=== PATIENT | male | born 1980 | race Caucasian/White ===

== ENCOUNTER 2019-11-03 09:43 | Emergency (ER) | payer OTHER, SELFPAY ==
--- NOTE | ~2019-11-03 | XR_ITS ---
EXAMINATION: XR chest 2V DATE: 11/03/2019 10:16 INDICATION: Midline chest pain TECHNIQUE: PA and lateral views of the chest were obtained. COMPARISON: Chest radiograph dated 04/14/2019 FINDINGS: The lungs remain clear with no focal airspace opacities, pulmonary edema, pleural effusion or pneumot horax. The cardiomediastinal silhouette is normal. Coronary artery stenting. Visualized bones and sof t tissues are unremarkable. IMPRESSION: 1. No acute cardiopulmonary disease. Reviewed, dictated and finalized at location A.
[2019-11-03 09:35] VITALS: BP 135/84; PULSE 71; RESP 13; TEMP 36.5; O2SAT 99
[2019-11-03 09:45] VITALS: PULSE 76
--- NOTE | 2019-11-03 09:47 | ECG_ITS ---
Measurements Intervals [place] Rate: 78 P: 58 TN: 147 QRS: 13 QRSD: 100 T: 14 QT: 396 QTc: 453 Interpretive Statements SINUS RHYTHM WITH SINUS ARRHYTHMIA BASELINE ARTIFACT- I, II, III, AVL, AVF NORMAL ECG Electronically Signed On 11-03-2019 11:26:18 CDT by Soto Pino D.O.
[2019-11-03 10:00] LABS: Basophils Percent Auto 0.4 % (0.2-1.2); Eosinophils Absolute Auto 0.1 K/mm3 (0-0.3); Eosinophils Percent Auto 1.6 % (0-4.4); Hematocrit 43.8 % (42.0-52.0); Immature Granulocyte Absolute 0.01 K/mm3 (0.00-0.031); Immature Granulocyte Percent A 0.2 % (0-0.5); Lymphocytes Absolute Auto 1.38 K/mm3 (0.9-3.2); Lymphocytes Percent Auto 30.7 % (18.3-44.2); Mean Corpuscular HGB Conc 34.2 g/dl (32-36); Mean Corpuscular Hemoglobin 31.1 pg (26-34); Mean Corpuscular Volume 90.7 fl (80-100); Mean Platelet Volume 10.1 fl (7.4-10.4); Monocytes Absolute Auto 0.5 K/mm3 (0.1-0.6); Monocytes Percent Auto 11.8 % (2.6-8.5); Neutrophils Absolute Auto 2.5 K/mm3 (1.3-6.7); Neutrophils Percent Auto 55.3 % (45.5-73.1); Platelet Count Result 202 k/mm3 (150-375); Red Blood Count 4.83 M/mm3 (4.6-6.20); Red Cell Distribution Width 12.4 % (11.5-14.5); White Blood Count 4.5 K/mm3 (4.5-10.0)
[2019-11-03 10:13] LABS: INR 0.9; Partial Thromboplastin Time 24.9 SECONDS (22.3-36.8); Prothrombin Time 11.8 Seconds (11.1-14.7)
[2019-11-03 10:15] LABS: Blood Urea Nitrogen 7 mg/dL (9-20); Carbon Dioxide 30 mmol/L (22-30); Chloride 100 mmol/L (98-107); Estimated CRCL calculation 133 ml/min; Estimated Glomerular Filt Rate > 60; Glucose 120 mg/dL (75-110); Potassium 3.7 mmol/L (3.4-5.0); Sodium 138 mmol/L (137-145)
[2019-11-03 10:25] VITALS: BP 124/98; PULSE 77; RESP 18; O2SAT 100
[2019-11-03 10:42] LABS: Troponin I 0.012 ng/mL (0.000-0.034)
[2019-11-03 12:37] VITALS: BP 115/76; PULSE 80; RESP 18; O2SAT 98
[2019-11-03 13:12] LABS: Troponin I < 0.012 ng/mL (0.000-0.034)
--- NOTE | 2019-11-03 13:24 | ED.CHESTPAIN ---
HPI - Chest Pain General Chief Complaint: Chest Pain Stated Complaint: Chest Discomfort Time Seen by Provider: 11/03/19 09:49 Source: patient Mode of arrival: EMS Limitations: no limitations History of Present Illness HPI narrative: 39-year-old with a history of Hodgkin's lymphoma, CAD status post stent here with a complains of palpitation and chest pain for past few days. Patient states that he woke up this morning around 430 started having palpitation associated with some elevated blood pressure. He states that this has been happening for the past few days. He presently denies any chest pain or shortness of breath. States his blood pressure was 140s over 80s over 90s which is high for him. No history of fever or chills. MD complaint: chest discomfort Pertinent past history: coronary artery disease Onset (ago): hour(s) (5) Prior episodes: No Pain location: substernal Pain radiation: none Severity: mild Quality: other (Discomfort) Relieving factors: nothing Exacerbating factors: nothing Treatment prior to arrival: none and aspirin Risk Factors Coronary artery disease risk factors: hypertension Thoracic aortic dissection risk factors: none Related Data Home Medications Medication Instructions Recorded Confirmed aspirin [Adult Aspirin Regimen] 81 mg PO DAILY 11/03/19 atorvastatin 40 mg PO DAILY 11/03/19 budesonide-formoterol [Symbicort] 2 puff INHALATION Q12H 11/03/19 buspirone 5 mg PO BID 11/03/19 carvedilol 12.5 mg PO BID 11/03/19 cetirizine [Zyrtec] 10 mg PO DAILY 11/03/19 coQ10 (ubiquinol) 100 mg PO BID 11/03/19 furosemide 20 mg PO DAILY 11/03/19 isosorbide mononitrate 30 mg PO DAILY 11/03/19 levothyroxine 125 mcg PO DAILY 11/03/19 montelukast 10 mg PO DAILY 11/03/19 Allergies Allergy/AdvReac Type Severity Reaction Status Date / Time No Known Allergies Allergy Unknown Unverified 11/03/19 09:46 Review of Systems Review of Systems: All systems reviewed & are unremarkable except as noted in HPI and below Constitutional: Constitutional: Reports no additional constitutional complaints Eyes: Eyes: Reports no additional eye complaints ENT: Reports system reviewed and no additional complaints, except as documented Cardiovascular: Cardiovascular: Reports no additional cardiovascular complaints Respiratory: Respiratory: Reports no additional respiratory complaints Gastrointestinal: Gastrointestinal: Reports no additional gastrointestinal complaints Musculoskeletal: Musculoskeletal: Reports no additional musculoskeletal complaints Exam Narrative: Exam Narrative: GENERAL: Well-appearing, well-nourished, and in no acute distress. HEAD: Normocephalic, atraumatic. EYES: PERRLA and EOMI. ENT: Nares clear, no rhinorrhea or epistaxis. Mucous membranes moist. NECK: Supple. CHEST: Clear to auscultation. No respiratory distress. HEART: Regular rate and rhythm. No murmur heard. Normal peripheral pulses. ABDOMEN: Soft, nontender, nondistended, normal active bowel sounds. EXTREMITIES: Normal range of motion. No edema. SKIN: Warm, dry, no rash. NEURO: No focal deficits. Alert and oriented x3. PSYCH: Normal mood and affect. Course Course Emergency Course: Patient remained asymptomatic while he was here in the ER. I discussed EKG and lab work with the patient and family. I also discussed with Dr. Bo Ray at [facility]. As the cardiac enzymes are normal and EKG appears to be normal patient can be followed up in his office next week. Patient does feel comfortable going home. Vital Signs Vital signs: Vital Signs Temperature 36.5 C 11/03/19 09:35 Pulse Rate 71 11/03/19 09:35 Respiratory Rate 13 11/03/19 09:35 Blood Pressure 135/84 11/03/19 09:35 Pulse Oximetry 99 11/03/19 09:35 Temperature 36.5 C 11/03/19 09:35 Pulse Rate 80 11/03/19 12:37 Respiratory Rate 18 11/03/19 12:37 Blood Pressure 115/76 11/03/19 12:37 Pulse Oximetry 98 11/03/19 12:37 M
[2019-11-03 13:35] VITALS: BP 103/73; PULSE 83; RESP 18; O2SAT 99
== END 2019-11-03 13:36 | disposition home or self-care (01) ==
PROVIDERS: Emergency Provider Family Medicine
DX: R07.9 Chest pain, unspecified (principal); I25.10 Atherosclerotic heart disease of native coronary artery without angina pectoris; Z95.5 Presence of coronary angioplasty implant and graft; Z79.82 Long term (current) use of aspirin; Z85.71 Personal history of Hodgkin lymphoma
CPT/HCPCS: 36415; 71046; 80048; 84484; 85025; 85610; 85730; 93005; 99284

== ENCOUNTER 2020-06-11 10:42 | Outpatient (NON) | payer OTHER, SELFPAY ==
[2020-06-12 13:30] LABS: SARS-CoV-2 RNA PCR Negative
== END 2020-06-11 10:43 ==
LOC: ANHCOVIDDT 10:46
PROVIDERS: Visit Provider Nurse Practitioner Adult Health
DX: Z20.828 Contact with and (suspected) exposure to other viral communicable diseases (principal); R09.81 Nasal congestion
CPT/HCPCS: 87635; C9803; U0003

== ENCOUNTER → 2021-10-21 08:43 | Outpatient (CLI) | payer OTHER, SELFPAY ==
--- NOTE | ~2021-10-21 | US_ITS ---
EXAMINATION: US abdomen limited EXAM DATE: 10/21/2021 09:43 INDICATION: Elevated liver enzyme . TECHNIQUE: Multiple grayscale and Doppler images of the abdomen right upper quadrant were obtained (b y a technologist who performed the scan) and subsequently reviewed. There is no prior study for tristan walls. FINDINGS: The pancreatic head and body are normal in appearance. The pancreatic tail is not visualized. There is hepatic steatosis with small region focal fatty sparing at the gallbladder fossa. There is no ev idence of intrahepatic biliary duct dilation. Portal venous flow was seen in the hepatopedal, normal direction and has normal Doppler waveform. No right-sided hydronephrosis. Common bile duct measures 4 mm, which is normal. The gallbladder wall is normal in thickness, with ex pected amount of distention. No sonographic evidence of pericholecystic fluid. There are several sm all gallbladder polyps measuring up to about 4 mm in size. No further follow-up is required for these . No cholelithiasis. Technologist performing exam reports patient did not demonstrate sonographic Mu rphy's sign. Please note that this sign is less reliable in patients who have received pain medicati on. IMPRESSION: 1. Hepatic steatosis. Reviewed, dictated and finalized at location B. IMPRESSION: 1. Hepatic steatosis.
== END ==
PROVIDERS: Visit Provider Internal Medicine Endocrinology, Diabetes & Metabolism
DX: R74.01 Elevation of levels of liver transaminase levels (principal); K76.0 Fatty (change of) liver, not elsewhere classified
CPT/HCPCS: 76705

== ENCOUNTER 2022-06-11 08:54 | Emergency (ER) | payer OTHER, SELFPAY ==
[2022-06-11 09:25] VITALS: BP 140/97; PULSE 87; RESP 16; TEMP 36.9; O2SAT 98
--- NOTE | 2022-06-11 10:00 | ED.URI ---
HPI - URI/Sore Throat General Chief Complaint: Ear Stated Complaint: lt ear pain, congestion Time Seen by Provider: 06/11/22 10:00 Source: patient, RN notes reviewed and old records reviewed Mode of arrival: ambulatory Limitations: no limitations History of Present Illness HPI Narrative: 42-year-old male presents to the [facility] with complaints of left ear pain and nasal congestion since Wednesday, 2 days. Patient has a cardiac history. States he has had 6 sinus infections last year. Has not seen his ENT. History of sinus surgery in the past due to chronic sinus issues. MD elicited complaint: rhinorrhea, nasal congestion and sinus pain Onset (ago): day(s) (2) Related Data Home Medications Medication Instructions Recorded Confirmed budesonide-formoterol HFA 160 2 inh inhalation BID 06/11/22 06/11/22 mcg-4.5 mcg/actuation aerosol inhaler carvedilol 12.5 mg tablet 12.5 mg PO BID 06/11/22 06/11/22 cyanocobalamin (vitamin B-12) 1,000 mcg subcut WEEKLY 06/11/22 06/11/22 1,000 mcg/mL injection solution furosemide 20 mg tablet 20 mg PO DAILY 06/11/22 06/11/22 isosorbide mononitrate 30 mg 30 mg PO DAILY 06/11/22 06/11/22 tablet,extended release 24 hr levothyroxine 125 mcg tablet 125 mcg PO DAILY 06/11/22 06/11/22 (Synthroid) rosuvastatin 10 mg tablet 10 mg PO DAILY 06/11/22 06/11/22 Allergies Allergy/AdvReac Type Severity Reaction Status Date / Time No Known Allergies Allergy Verified 06/11/22 09:22 Review of Systems Review of Systems: All systems reviewed & are unremarkable except as noted in HPI and below Constitutional: Constitutional: Reports no additional constitutional complaints Eyes: Eyes: Reports no additional eye complaints ENT: Reports as per HPI, Reports otalgia (left ) and Reports nasal congestion Cardiovascular: Cardiovascular: Reports no additional cardiovascular complaints, Denies chest pain and Denies dyspnea Respiratory: Respiratory: Reports no additional respiratory complaints, Denies chest congestion, Denies cough and Denies dyspnea Gastrointestinal: Gastrointestinal: Reports no additional gastrointestinal complaints Musculoskeletal: Musculoskeletal: Reports no additional musculoskeletal complaints Integumentary/Breasts: Skin/Breast: Reports system reviewed and no additional complaints, except as docu Neurologic: Reports system reviewed and no additional complaints, except as documented Psychiatric: Psychiatric: Reports no additional psychiatric complaints Allergic/Immunologic: Allergic/Immunologic: Reports no additional allergic/immunologic complaints PMFSH Past Medical History Medical History (Updated 06/11/22 @ 19:09 by Hanna Duffy APRN) High cholesterol History of high blood pressure Social History Social History Gender identity (if verbalized by the patient): Male Comments At the time of my signature, I reviewed and agree with the nursing past medical, surgical, social, and family history. There is no relevant family history pertinent to the patient complaint. Exam Const: General: cooperative, healthy appearing, comfortable, no acute distress, well developed, alert and average body habitus Nutritional Appearance: average body habitus and well nourished Orientation/consciousness: patient oriented x3 Limitations: no limitations HENMT: Head: normal to inspection Ears: hearing grossly normal bilaterally, external ears normal, EAC's normal and TM abnormal with fluid behind the TM bilateral; not bulging Face/Nose/Sinus: Normal external nose present, Normal nares present, Normal nasal mucous membranes and turbinates present and normal facial exam Face and sinus: normal facial exam and sinus tenderness frontal and maxillary Mouth: Yes Normal oral and palatal mucosa present, Yes lip normal and Yes moist mucous membranes Throat: posterior oropharynx normal and uvula midline Eyes: General: appearance normal, b
== END 2022-06-11 10:23 | disposition home or self-care (01) ==
PROVIDERS: Emergency Provider Nurse Practitioner
DX: J32.9 Chronic sinusitis, unspecified (principal); E78.00 Pure hypercholesterolemia, unspecified; I10 Essential (primary) hypertension
CPT/HCPCS: 99213; G0463

== ENCOUNTER 2022-08-01 04:45 | Emergency (ER) | payer OTHER, SELFPAY ==
[2022-08-01] VITALS (7 sets, daily range): BP systolic 120–174; BP diastolic 82–116; PULSE 70–81; RESP 16–20; TEMP 36.1; O2SAT 100
--- NOTE | ~2022-08-01 | XR_ITS ---
EXAMINATION: XR chest 2V DATE: 08/01/2022 05:06 INDICATION: Chest pain. Hypertension. TECHNIQUE: Frontal and lateral views of the chest were obtained. COMPARISON: Chest 2 views 11/03/2019, chest CT 02/06/2019 FINDINGS: The chest demonstrates clear lungs without pneumonia, pleural effusion, or pneumothorax. Th e heart size is normal. There are surgical clips in right axilla. IMPRESSION: 1. No acute cardiopulmonary disease. Reviewed, dictated and finalized at location A. ING TECHNICIAN
--- NOTE | 2022-08-01 04:47 | ECG_ITS ---
Measurements Intervals [place] Rate: 78 P: 58 MI: 165 QRS: 12 QRSD: 94 T: 20 QT: 377 QTc: 429 Interpretive Statements SINUS RHYTHM BASELINE ARTIFACT- I, III, AVR, AVL, V1 NORMAL ECG COMPARED TO ECG 11/03/2019 09:48:10 NO SIGNIFICANT CHANGES Electronically Signed On 08-01-2022 10:01:11 [employer] by Soto Pino D.O.
[2022-08-01 05:11] LABS: Basophils Absolute Auto 0.1 K/mm3 (0.0-0.1); Basophils Percent Auto 0.6 % (0.2-1.2); Eosinophils Absolute Auto 0.2 K/mm3 (0-0.3); Eosinophils Percent Auto 1.8 % (0-4.4); Hematocrit 49.7 % (42.0-52.0); Hemoglobin 17.2 g/dL (14.0-18.0); Immature Granulocyte Absolute 0.03 K/mm3 (0.00-0.031); Immature Granulocyte Percent A 0.4 % (0-0.5); Lymphocytes Absolute Auto 2.63 K/mm3 (0.9-3.2); Lymphocytes Percent Auto 31.5 % (18.3-44.2); Mean Corpuscular HGB Conc 34.6 g/dl (32-36); Mean Corpuscular Hemoglobin 31.3 pg (26-34); Mean Corpuscular Volume 90.4 fl (80-100); Mean Platelet Volume 9.5 fl (7.4-10.4); Monocytes Absolute Auto 0.8 K/mm3 (0.1-0.6); Monocytes Percent Auto 9.5 % (2.6-8.5); Neutrophils Absolute Auto 4.7 K/mm3 (1.3-6.7); Neutrophils Percent Auto 56.2 % (45.5-73.1); Platelet Count Result 236 k/mm3 (150-375); Red Cell Distribution Width 12.8 % (11.5-14.5); White Blood Count 8.3 K/mm3 (4.5-10.0)
[2022-08-01 05:23] LABS: INR 0.9; Prothrombin Time 12.2 Seconds (11.1-14.7)
[2022-08-01 05:24] LABS: Partial Thromboplastin Time 26.1 SECONDS (22.3-36.8)
--- NOTE | 2022-08-01 05:27 | PC.NURSE ---
Pt reports waking up this morning with midsternal, non-radiaiting chest pain and feeling like his heart was pounding. He checked his blood pressure and it was elevated. He has not missed any of his blood pressure medication. He denies headache, blurry vision, dizziness, nausea, or vomiting. Skin is warm and dry. Respiratory rate regular and non-labored.
[2022-08-01 05:36] LABS: Alanine Aminotransferase 74 U/L (6-50); Albumin Level 4.8 g/dL (3.5-5.1); Alkaline Phosphatase 73 U/L (38-126); Anion Gap 7 mmol/L (8-16); Aspartate Amino Transferase 46 U/L (17-59); Bilirubin,Total 0.8 mg/dL (0.2-1.3); Blood Urea Nitrogen 13 mg/dL (9-20); Calcium 8.9 mg/dL (8.4-10.2); Carbon Dioxide 31 mmol/L (22-30); Chloride 98 mmol/L (98-107); Estimated CRCL calculation 114 ml/min; Estimated Glomerular Filt Rate > 60; Glucose 119 mg/dL (65-110); Lipase 109 U/L (23-300); Sodium 136 mmol/L (137-145)
[2022-08-01 05:38] LABS: Troponin I 0.016 ng/mL (0.000-0.034)
--- NOTE | 2022-08-01 06:39 | PC.NURSE ---
Pt took his morning medications that he brought with him.
--- NOTE | 2022-08-01 07:10 | PC.NURSE ---
Nurse report given to Kae JASMINE
[2022-08-01 08:15] LABS: Troponin I 0.014 ng/mL (0.000-0.034)
--- NOTE | 2022-08-01 10:10 | ED.CHESTPAIN ---
HPI - Chest Pain General Chief Complaint: Chest Pain Stated Complaint: chest pain Time Seen by Provider: 08/01/22 07:01 History of Present Illness HPI narrative: Patient is a 42-year-old male who presents ER with chest discomfort. Reports racing his heart this morning with some pain. Reports she has been dealing with elevated blood pressures over the last couple days in the 170s over 100s. He has been in touch with his acidizer who will get back in touch with him on Wednesday. Patient has history of coronary stenting but it is related to radiation injury from lymphoma. He has no exertional chest pain or pressure. No nausea/vomiting/sweats. Resting comfortably and pain-free at this time. Related Data Home Medications Medication Instructions Recorded Confirmed aspirin 81 mg tablet,delayed 81 mg PO DAILY 11/03/19 release (Adult Aspirin Regimen) atorvastatin 40 mg tablet 40 mg PO DAILY 11/03/19 budesonide-formoterol HFA 160 2 puff inhalation Q12H 11/03/19 mcg-4.5 mcg/actuation aerosol inhaler (Symbicort) buspirone 5 mg tablet 5 mg PO BID 11/03/19 carvedilol 12.5 mg tablet 12.5 mg PO BID 11/03/19 cetirizine 10 mg capsule (Zyrtec) 10 mg PO DAILY 11/03/19 coQ10 (ubiquinol) 100 mg capsule 100 mg PO BID 11/03/19 furosemide 20 mg tablet 20 mg PO DAILY 11/03/19 isosorbide mononitrate 30 mg 30 mg PO DAILY 11/03/19 tablet,extended release 24 hr levothyroxine 125 mcg tablet 125 mcg PO DAILY 11/03/19 montelukast 10 mg tablet 10 mg PO DAILY 11/03/19 Allergies Allergy/AdvReac Type Severity Reaction Status Date / Time No Known Allergies Allergy Unknown Unverified 08/01/22 09:25 Review of Systems Review of Systems: All systems reviewed & are unremarkable except as noted in HPI and below Constitutional: Constitutional: Denies chills, Denies fatigue and Denies fever(s) ENT: Reports nasal congestion and Denies sore throat Comments: Chronic tinnitus Cardiovascular: Cardiovascular: Reports chest pain, Reports rapid heart rate and Denies radiating jaw, neck or arm pain Respiratory: Respiratory: Denies cough, Denies dyspnea and Denies wheezing Gastrointestinal: Gastrointestinal: Denies abdominal pain, Denies nausea and Denies vomiting PMFSH Past Medical History Medical History (Updated 08/01/22 @ 10:29 by Bo Lees MD) Hypertension Hypothyroidism Lymphoma Surgical History Surgical History (Updated 08/01/22 @ 10:29 by Bo Lees MD) History of percutaneous coronary intervention Social History Social History Gender identity (if verbalized by the patient): Male Exam Narrative: GENERAL: Well-appearing, well-nourished, and in no acute distress. HEAD: Normocephalic, atraumatic. ENT: Mucous membranes moist. TMs normal bilaterally. NECK: Supple. CHEST: Clear to auscultation. No respiratory distress. HEART: Regular rate and rhythm. Normal peripheral pulses. ABDOMEN: Soft, nontender, nondistended. EXTREMITIES: Normal range of motion. No edema. SKIN: Warm, dry, no rash. NEURO: Alert and oriented x3. PSYCH: Normal mood and affect. Course Course Emergency Course: Troponin negative x2. Do not suspect cardiac chest pain given description. TSH normal. Recommend follow-up with acidizer. Patient's blood pressure is now 120/88 after he took his morning medications. Vital Signs Vital signs: Vital Signs Temperature 96.9 F L 08/01/22 04:45 Pulse Rate 79 08/01/22 04:45 Respiratory Rate 16 08/01/22 04:45 Blood Pressure 174/116 H 08/01/22 04:45 Pulse Oximetry 100 08/01/22 04:45 Oxygen Delivery Room Air 08/01/22 04:45 Temperature 96.9 F L 08/01/22 04:45 Pulse Rate 70 08/01/22 09:23 Respiratory Rate 18 08/01/22 09:23 Blood Pressure 132/82 08/01/22 09:23 Pulse Oximetry 100 08/01/22 09:23 Oxygen Delivery Room Air 08/01/22 07:27 MDM - Chest Pain Lab Data 08/01/22 05:00
== END 2022-08-01 10:25 | disposition home or self-care (01) ==
PROVIDERS: Emergency Medicine; Emergency Provider Emergency Medicine; PCP Emergency Medicine
DX: I10 Essential (primary) hypertension (principal); E03.9 Hypothyroidism, unspecified; Z85.72 Personal history of non-Hodgkin lymphomas
CPT/HCPCS: 36415; 71046; 80053; 83690; 84443; 84484; 85025; 85610; 85730; 93005; 99284

== ENCOUNTER 2022-08-01 16:00 | Emergency (ER) | payer OTHER, SELFPAY ==
[2022-08-01 16:13] VITALS: BP 144/98; PULSE 80; RESP 16; TEMP 36.6; O2SAT 100
--- NOTE | 2022-08-01 16:58 | ED.GENADULT ---
HPI - General Adult General Chief complaint: Urogenital-Male Stated complaint: uti Source: patient Mode of arrival: ambulatory Limitations: no limitations History of Present Illness HPI narrative: Patient presents for evaluation of bilateral flank pain and suprapubic pain with symptom onset this morning. He states he woke from sleep with the symptoms. He reports a pressure sensation in the region of his bladder. He went to the emergency department this morning for elevated blood pressure. At that time labs were fairly unremarkable. Chest x-ray was normal. EKG was essentially normal. He was advised to follow up outpatient for further evaluation and treatment. He states he is concerned he may have a urinary tract infection. He reports dysuria and urinary frequency. He denies hematuria or discharge from his urethra. He is sexually active with his . She is asymptomatic. His bowel pattern is irregular on a chronic basis. Last bowel movement was last evening, which was diarrhea. He denies any fever, chills, nausea, vomiting. He has had some intermittent testicular tenderness over last few days following rowing exercises at the gym. He previously had a vasectomy which was later reversed. He states he likes to undergo medical evaluations when he has symptoms secondary to his previous history of cancer. He has undergone radiation therapy and is currently in remission. Related Data Home Medications Medication Instructions Recorded Confirmed budesonide-formoterol HFA 160 2 inh inhalation BID 06/11/22 06/11/22 mcg-4.5 mcg/actuation aerosol inhaler carvedilol 12.5 mg tablet 12.5 mg PO BID 06/11/22 06/11/22 cyanocobalamin (vitamin B-12) 1,000 mcg subcut WEEKLY 06/11/22 06/11/22 1,000 mcg/mL injection solution furosemide 20 mg tablet 20 mg PO DAILY 06/11/22 06/11/22 isosorbide mononitrate 30 mg 30 mg PO DAILY 06/11/22 06/11/22 tablet,extended release 24 hr levothyroxine 125 mcg tablet 125 mcg PO DAILY 06/11/22 06/11/22 (Synthroid) rosuvastatin 10 mg tablet 10 mg PO DAILY 06/11/22 06/11/22 Allergies Allergy/AdvReac Type Severity Reaction Status Date / Time No Known Allergies Allergy Verified 06/11/22 09:22 Review of Systems Review of Systems: CONSTITUTIONAL: Denies fever, chills, or sweats. EYES: Denies visual changes, redness, or discharge. ENT: Denies rhinorrhea, congestion, sore throat, or otalgia. CARDIOVASCULAR: Denies chest pain, palpitations, or edema. RESPIRATORY: Denies cough or dyspnea. GASTROINTESTINAL: Reports suprapubic pain. Reports recent diarrhea, none today. Denies nausea or vomiting GENITOURINARY: Reports dysuria and urinary frequency. Reports some intermittent testicular pain bilaterally SKIN: Denies rash or itching. MUSCULOSKELETAL: Reports bilateral flank pain. Deniesjoint pain, or myalgia. NEUROLOGIC: Denies headache, numbness, dizziness, or weakness. PSYCHIATRIC: Denies anxiety or depression. [facility] Past Medical History Medical History (Updated 08/01/22 @ 17:26 by SHELDON BurchP, ) High cholesterol History of high blood pressure History of lymphoma Surgical History Surgical History Hx of heart artery stent Family History Family History Mother Family history non-contributory Social History Social History Smoking status: Never smoker Substance use: never Living arrangements: with family Gender identity (if verbalized by the patient): Male Sexual Orientation (if Verbalized by the Patient): Straight or Heterosexual Spiritual care concerns: No Exam Narrative: GENERAL: Well-appearing, well-nourished, and in no acute distress. HEAD: Normocephalic, atraumatic. EYES: PERRLA and EOMI. ENT: Nares clear, no rhinorrhea or epistaxis. Mucous membranes moist. Oropharyn
== END 2022-08-01 17:16 | disposition home or self-care (01) ==
PROVIDERS: Emergency Provider Nurse Practitioner
DX: R30.0 Dysuria (principal); R10.30 Lower abdominal pain, unspecified; E78.00 Pure hypercholesterolemia, unspecified; I10 Essential (primary) hypertension; I25.10 Atherosclerotic heart disease of native coronary artery without angina pectoris; Z95.5 Presence of coronary angioplasty implant and graft; Z85.72 Personal history of non-Hodgkin lymphomas
CPT/HCPCS: 81003; 99212; G0463

== ENCOUNTER 2022-08-12 21:07 | Emergency (ER) | payer OTHER, SELFPAY ==
--- NOTE | ~2022-08-12 | XR_ITS ---
Clinical Indication: Chest pain PA and lateral views of the chest: Comparison: 08/01/2022 Findings: The lungs are clear, without evidence of focal consolidation or pleural effusion. Cardiome diastinal silhouette is within normal limits. Bones and soft tissues are unremarkable. Impression: Normal chest. Reviewed, dictated and finalized at [facility]. MACHINE OPERATOR Impression: Normal chest.
--- NOTE | 2022-08-12 21:11 | ECG_ITS ---
Measurements Intervals [place] Rate: 82 P: 73 SD: 162 QRS: 20 QRSD: 110 T: 53 QT: 373 QTc: 436 Interpretive Statements SINUS RHYTHM NORMAL ECG COMPARED TO ECG 08/01/2022 04:52:37 NO SIGNIFICANT CHANGES Electronically Signed On 08-13-2022 10:06:05 [employer] by Rodríguez Polanco M.D.
[2022-08-12 21:14] VITALS: BP 166/100; PULSE 93; RESP 20; TEMP 36.5; O2SAT 100
[2022-08-12 23:05] VITALS: O2SAT 100
[2022-08-12 23:07] VITALS: BP 146/95; O2SAT 100
[2022-08-12 23:15] VITALS: BP 128/92; O2SAT 97
[2022-08-12 23:42] LABS: Basophils Percent Auto 0.5 % (0.2-1.2); Eosinophils Absolute Auto 0.1 K/mm3 (0-0.3); Eosinophils Percent Auto 1.3 % (0-4.4); Hematocrit 48.5 % (42.0-52.0); Hemoglobin 16.9 g/dL (14.0-18.0); Immature Granulocyte Absolute 0.02 K/mm3 (0.00-0.031); Immature Granulocyte Percent A 0.2 % (0-0.5); Lymphocytes Absolute Auto 2.09 K/mm3 (0.9-3.2); Mean Corpuscular HGB Conc 34.8 g/dl (32-36); Mean Corpuscular Hemoglobin 30.7 pg (26-34); Mean Corpuscular Volume 88.2 fl (80-100); Mean Platelet Volume 9.7 fl (7.4-10.4); Monocytes Absolute Auto 0.7 K/mm3 (0.1-0.6); Monocytes Percent Auto 8.6 % (2.6-8.5); Neutrophils Absolute Auto 5.4 K/mm3 (1.3-6.7); Neutrophils Percent Auto 64.4 % (45.5-73.1); Platelet Count Result 243 k/mm3 (150-375); Red Cell Distribution Width 12.5 % (11.5-14.5); White Blood Count 8.4 K/mm3 (4.5-10.0)
--- NOTE | 2022-08-12 23:43 | ED.GENADULT ---
HPI - General Adult General Chief complaint: Unspecified Stated complaint: HTN, cold extremities Time Seen by Provider: 08/12/22 22:50 Source: patient and RN notes reviewed Mode of arrival: ambulatory Limitations: no limitations History of Present Illness HPI narrative: This is a 42 year old male with history of hyperlipidemia, CAD with stent who presents for evaluation of elevated blood pressure and cold feeling in his legs. PAtient states he was started on amlodipine 1 week ago for evaluated blood pressure. He states that he has cold sensation to bilateral legs from his calves down to his feet. He also reports intermittent sharp pain in his lower legs. He states his has been checking his blood pressure it was elevated to 160s/100. He also reports intermittent atypical chest pain, sob, intermittent abdominal pain. He states he is getting bladder scan soon due to abdominal issues. HE has distant history of lymphoma in which he had chemo and radiation. This occurred 20 years ago. Related Data Home Medications Medication Instructions Recorded Confirmed aspirin 81 mg tablet,delayed 81 mg PO DAILY 11/03/19 release (Adult Aspirin Regimen) atorvastatin 40 mg tablet 40 mg PO DAILY 11/03/19 budesonide-formoterol HFA 160 2 puff inhalation Q12H 11/03/19 mcg-4.5 mcg/actuation aerosol inhaler (Symbicort) buspirone 5 mg tablet 5 mg PO BID 11/03/19 carvedilol 12.5 mg tablet 12.5 mg PO BID 11/03/19 cetirizine 10 mg capsule (Zyrtec) 10 mg PO DAILY 11/03/19 coQ10 (ubiquinol) 100 mg capsule 100 mg PO BID 11/03/19 furosemide 20 mg tablet 20 mg PO DAILY 11/03/19 isosorbide mononitrate 30 mg 30 mg PO DAILY 11/03/19 tablet,extended release 24 hr levothyroxine 125 mcg tablet 125 mcg PO DAILY 11/03/19 montelukast 10 mg tablet 10 mg PO DAILY 11/03/19 Allergies Allergy/AdvReac Type Severity Reaction Status Date / Time No Known Allergies Allergy Unknown Unverified 08/01/22 09:25 Review of Systems Constitutional: Constitutional: Denies weakness Cardiovascular: Cardiovascular: Denies syncope, Denies rapid heart rate, Denies irregular heart rhythm, Denies leg edema and Reports dyspnea Respiratory: Respiratory: Denies chest congestion, Denies hemoptysis, Denies excessive phlegm production and Denies dyspnea Gastrointestinal: Gastrointestinal: Reports abdominal pain, Denies hematochezia, Denies diarrhea and Denies vomiting Genitourinary: Genitourinary: Denies hematuria, Denies dysuria, Denies penile discharge and Denies testicular pain Musculoskeletal: Musculoskeletal: Reports myalgias, Denies joint swelling, Denies loss of height and Denies muscle weakness Neurologic: Denies syncope, Denies focal weakness and Denies weakness PMFSH Past Medical History Medical History Hypertension Hypothyroidism Lymphoma Surgical History Surgical History History of percutaneous coronary intervention Social History Social History (Updated 08/13/22 @ 00:12 by Ellie Marie MD) Smoking status: Never smoker Gender identity (if verbalized by the patient): Male Exam Narrative: GENERAL: Well-appearing, well-nourished, and in no acute distress. HEAD: Normocephalic, atraumatic EYES: PERRLA and EOMI, conjunctiva clear without discharge THROAT:Mucous membranes moist, Oropharynx normal without erythema, exudate, peritonsillar swelling or fluctuance NECK: Supple, without lymphadenopathy or mass RESPIRATORY: No respiratory distress, Airway patent, Respirations non-labored, Clear to auscultation without rales, rhonchi or wheeze HEART: Regular rate and rhythm. No murmur heard. Normal peripheral pulses. ABDOMEN: Soft, nontender, nondistended, normal active bowel sounds. No masses. No rebound or guarding, No organomegaly. EXTREMITIES: No edema, normal strength with full range of motion. SKIN: Warm, dry, normal color with
[2022-08-12 23:55] LABS: Prothrombin Time 12.6 Seconds (11.1-14.7)
[2022-08-12 23:56] LABS: Partial Thromboplastin Time 28.2 SECONDS (22.3-36.8)
[2022-08-13 00:01] LABS: D Dimer 0.27 ug/mL (<0.48)
[2022-08-13 00:01] LABS: Appearance Urine Clear (Clear); Bilirubin Urine Negative (Negative); Blood Urine Negative (Negative); Color Urine Yellow (Yellow); Glucose Urine UA Negative (Negative); Ketones Urine Negative (Negative); Leukocyte Esterase Ur Negative LEU/UL (Negative); Nitrate Urine Negative (Negative); Protein Urine Negative (Negative); Specific Grav Ur 1.015 (1.001-1.035); Urobilinogen Urine 0.2 mg/dL (<2.0)
[2022-08-13 00:02] LABS: Alanine Aminotransferase 60 U/L (6-50); Albumin Level 4.6 g/dL (3.5-5.1); Alkaline Phosphatase 71 U/L (38-126); Anion Gap 9 mmol/L (8-16); Aspartate Amino Transferase 49 U/L (17-59); Bilirubin,Total 0.8 mg/dL (0.2-1.3); Blood Urea Nitrogen 12 mg/dL (9-20); CRP < 0.5 mg/dL (<1.0); Calcium 8.7 mg/dL (8.4-10.2); Carbon Dioxide 28 mmol/L (22-30); Chloride 104 mmol/L (98-107); Creatine Kinase 649 U/L (55-170); Estimated CRCL calculation 114 ml/min; Estimated Glomerular Filt Rate > 60; Glucose 107 mg/dL (65-110); Lipase 106 U/L (23-300); Magnesium 2.1 mg/dL (1.6-2.3); Potassium 3.8 mmol/L (3.4-5.0); Sodium 141 mmol/L (137-145)
[2022-08-13 00:04] LABS: Troponin I 0.012 ng/mL (0.000-0.034)
[2022-08-13 00:05] LABS: Squamous Epithelial Cell Urine Rare /hpf (Few); WBC Urine 0-3 /hpf
[2022-08-13 00:06] LABS: Add Urine Microscopic? NO
[2022-08-13] MEDS: SODIUM CHLORIDE 0.9% IV 1,000 ML 999 ML IV CONT (00:28)
[2022-08-13 01:41] VITALS: BP 129/94; PULSE 81; RESP 18; TEMP 36.8; O2SAT 100
== END 2022-08-13 01:40 | disposition home or self-care (01) ==
PROVIDERS: Emergency Provider General Practice; PCP Emergency Medicine
DX: M79.10 Myalgia, unspecified site (principal); R07.89 Other chest pain; I10 Essential (primary) hypertension; E03.9 Hypothyroidism, unspecified
CPT/HCPCS: 36415; 71046; 80053; 81003; 82550; 83690; 83735; 84484; 85025; 85380; 85610; 85730; 86140; 93005; 96360; 99284; J7030

== ENCOUNTER → 2022-08-17 08:16 | Outpatient (CLI) | payer OTHER, SELFPAY ==
--- NOTE | ~2022-08-17 | US_ITS ---
EXAMINATION: US scrotum doppler DATE: 08/17/2022 09:41 INDICATION: Scrotal pain TECHNIQUE: Testicular sonogram utilizing grayscale and Doppler COMPARISON: None. FINDINGS: The right testis measures 3.8 x 2.4 x 3.5 cm. The left testis measures 3.7 x 2.6 x 2.6 cm. There is normal vascular flow to both testes. The right epididymis is normal with normal vascular erik w. The left epididymis is normal with normal vascular flow. There are small bilateral hydroceles. IMPRESSION: 1. No sonographic correlate for the patient's symptoms. Reviewed, dictated and finalized at location B. Y EDITOR
--- NOTE | ~2022-08-17 | US_ITS ---
Renal-Bladder ultrasound Clinical History: Abdominal pain Technique: Real-time sonographic imaging of the kidneys and urinary bladder was performed. Findings: The right kidney measures 10.6 cm in length and the left kidney measures 10.8 cm. There is no hydronephrosis or renal calculus identified. Renal cortical echogenicity is within normal limits. No renal mass lesion is identified. The urinary bladder is moderately distended at the time of this exam. No intraluminal echoes are iden tified. No abnormal wall thickening is seen. Echogenic liver is incidentally noted. Impression: Unremarkable ultrasound of the kidneys and urinary bladder. Incidental note made of diffuse fatty infiltration of liver. Reviewed, dictated and finalized at location . ER BOXER Impression: Unremarkable ultrasound of the kidneys and urinary bladder. Incidental note made of diffuse fatty infiltration of liver.
== END ==
PROVIDERS: PCP Emergency Medicine; Visit Provider Emergency Medicine
DX: R10.9 Unspecified abdominal pain (principal); N50.82 Scrotal pain
CPT/HCPCS: 76775; 76870; 93976

== ENCOUNTER → 2022-09-01 09:18 | Outpatient (CLI) | payer OTHER, SELFPAY ==
--- NOTE | ~2022-09-01 | CT_ITS ---
EXAMINATION: CT sinus wo con DATE: 09/01/2022 09:34 INDICATION: Recurrent ethmoid sinusitis. TECHNIQUE: Computed tomography (CT) of the paranasal sinuses was performed without intravenous contra st. The dose-length product was 407.96 mGy-cm. Automated exposure control and iterative reconstructio n technique were employed. COMPARISON: 07/21/2019 FINDINGS: There is mild mucosal thickening of the left maxillary sinus. Rightward nasal septal deviat ion. No air-fluid levels. Mastoids are pneumatized. Pterygoid plates are intact. Mastoids are pneumat ized. No depressed skull fractures. There is a left-sided tiffany bullosa. IMPRESSION: 1. Mild left maxillary sinus disease. Reviewed, dictated and finalized at location L. MACY AIDE
== END ==
PROVIDERS: PCP Emergency Medicine; Visit Provider Otolaryngology
DX: J32.0 Chronic maxillary sinusitis (principal)
CPT/HCPCS: 70486

== ENCOUNTER → 2023-05-31 08:45 | Outpatient (CLI) | payer OTHER, SELFPAY ==
--- NOTE | ~2023-05-31 | CT_ITS ---
EXAMINATION: CT sinus wo con DATE: 05/31/2023 08:57 INDICATION: Chronic maxillary sinusitis TECHNIQUE: Computed tomography (CT) of the paranasal sinuses was performed without intravenous contra st. The dose-length product was 424.25 mGy-cm. Automated exposure control and iterative reconstructio n technique were employed. COMPARISON: CT dated 09/01/2022 FINDINGS: There is mild mucosal thickening of the maxillary sinuses. Ostiomeatal units are patent. Ri ghtward nasal septal deviation. Mastoids are pneumatized. IMPRESSION: 1. Mild maxillary sinus disease. Reviewed, dictated and finalized at location B. STRIAL ELECTRICAL TECHNICIAN
== END ==
PROVIDERS: PCP Otolaryngology; Visit Provider Otolaryngology
DX: H65.492 Other chronic nonsuppurative otitis media, left ear (principal); H69.90 Unspecified Eustachian tube disorder, unspecified ear; J32.0 Chronic maxillary sinusitis
CPT/HCPCS: 70486

== ENCOUNTER 2024-01-22 12:34 | Emergency (ER) | payer OTHER, SELFPAY ==
[2024-01-22 12:42] VITALS: BP 117/83; PULSE 78; RESP 16; TEMP 37.2; O2SAT 100
--- NOTE | 2024-01-22 12:52 | ED.EAR ---
HPI - Ear Problem General Chief complaint: Ear Stated complaint: SINUS/EARS/PRESSURE Time Seen by Provider: 01/22/24 12:53 Source: patient Mode of arrival: ambulatory Limitations: no limitations History of Present Illness HPI Narrative: patient presents with complaints of left ear pain x2 days. He reports that he gets frequent ear infections, has been flying a lot more lately. He denies any fever, chills, sweats. He denies any injury or trauma. Related Data Home Medications Medication Instructions Recorded Confirmed aspirin 81 mg tablet,delayed 81 mg PO DAILY 11/03/19 01/22/24 release (Adult Aspirin Regimen) cetirizine 10 mg capsule (Zyrtec) 10 mg PO DAILY 11/03/19 01/22/24 coQ10 (ubiquinol) 100 mg capsule 100 mg PO BID 11/03/19 01/22/24 carvedilol 12.5 mg tablet 12.5 mg PO BID 06/11/22 01/22/24 furosemide 20 mg tablet 20 mg PO DAILY 06/11/22 01/22/24 isosorbide mononitrate 30 mg 30 mg PO DAILY 06/11/22 01/22/24 tablet,extended release 24 hr rosuvastatin 10 mg tablet 10 mg PO DAILY 06/11/22 01/22/24 amlodipine 5 mg tablet 5 mg PO DAILY 08/11/22 01/22/24 levothyroxine 100 mcg tablet 100 mcg PO DAILY 09/09/23 01/22/24 (Synthroid) Allergies Allergy/AdvReac Type Severity Reaction Status Date / Time No Known Allergies Allergy Unknown Verified 01/22/24 12:41 Review of Systems Review of Systems: All systems reviewed & are unremarkable except as noted in HPI and below Constitutional: Constitutional: Reports no additional constitutional complaints ENT: Reports system reviewed and no additional complaints, except as documented, Reports otalgia and Reports nasal congestion Cardiovascular: Cardiovascular: Reports no additional cardiovascular complaints Respiratory: Respiratory: Reports no additional respiratory complaints Gastrointestinal: Gastrointestinal: Reports no additional gastrointestinal complaints PMFSH Past Medical History Medical History High cholesterol History of high blood pressure History of lymphoma Hypertension Hypothyroidism Lymphoma Surgical History Surgical History H/O sinus surgery History of percutaneous coronary intervention Hx of heart artery stent Family History Family History Mother Family history non-contributory Other Diabetes mellitus Social History Social History Smoking status: Never smoker Alcohol intake: former Substance use: never Lack of Transportation: No Lack of Food: Never True Current Housing: I Have Housing Concerned About Future Housing: No Difficulty Paying Gas/Electric Bills: No Difficulty Paying for Meds: No Currently Unemployed: No Education: Bachelor's Degree Difficulty w/ Childcare or Family Care: No Living arrangements: with family Gender identity (if verbalized by the patient): Male Sexual Orientation (if Verbalized by the Patient): Straight or Heterosexual Spiritual care concerns: No Exam Const: General: cooperative, no acute distress, alert and awake Orientation/consciousness: oriented to person, oriented to place and oriented to time HENMT: Head: normal to inspection Ears: TM normal on the right and TM abnormal (left) bulging, erythematous and with loss of landmarks Resp: Effort & Inspection: normal respiratory effort and able to speak in complete sentences Auscultation: clear to auscultation bilaterally, no crackles, no rales, no rhonchi and no wheezes Cardio: Palpation: normal PMI Rate: regular rate Rhythm: regular rhythm Heart sounds: S1 normal heart sound present and S2 normal heart sound present Neuro: General: oriented to person, oriented to place and oriented to time Cranial nerves: Yes CN's II-XII intact bilaterally Psych: Appearance: grossly normal Thought process: Nor
== END 2024-01-22 13:00 | disposition home or self-care (01) ==
PROVIDERS: Emergency Provider Nurse Practitioner Family; PCP Emergency Medicine
DX: H66.002 Acute suppurative otitis media without spontaneous rupture of ear drum, left ear (principal); E78.00 Pure hypercholesterolemia, unspecified; I10 Essential (primary) hypertension; E03.9 Hypothyroidism, unspecified; Z85.72 Personal history of non-Hodgkin lymphomas; Z79.82 Long term (current) use of aspirin
CPT/HCPCS: 99213; G0463

== ENCOUNTER 2024-05-12 10:27 | Outpatient (CLI) | payer OTHER, SELFPAY ==
--- NOTE | ~2024-05-12 | XR_ITS ---
Left foot Technique: AP, oblique, and lateral views were obtained. Clinical History: Foot Findings: No acute fracture or dislocation is seen. Osseous alignment is anatomic. Joint spaces are p reserved without erosive or degenerative change. There is nonspecific soft tissue calcification along the medial aspect of the first metatarsal head.. Impression: No acute abnormality. Nonspecific soft tissue mineralization along the medial aspect of the first metatarsal head. Reviewed, dictated and finalized at location M. Impression: No acute abnormality. Nonspecific soft tissue mineralization along the medial aspect of the first met atarsal head.
== END 2024-05-12 10:28 | disposition home or self-care (01) ==
LOC: GOSHIMG 10:28
PROVIDERS: PCP Nurse Practitioner Family; Visit Provider Nurse Practitioner Family
DX: M79.672 Pain in left foot (principal)
CPT/HCPCS: 73630

== ENCOUNTER 2024-09-07 08:13 | Outpatient (CLI) | payer OTHER, SELFPAY ==
[2024-09-08 07:21] LABS: Kit Draw Collected
== END 2024-09-07 08:14 | disposition home or self-care (01) ==
LOC: ANHGOSHLAB 08:14
PROVIDERS: PCP Nurse Practitioner Family; Visit Provider Nurse Practitioner Family
DX: E03.9 Hypothyroidism, unspecified (principal); I38 Endocarditis, valve unspecified; R73.01 Impaired fasting glucose; Z85.71 Personal history of Hodgkin lymphoma; Z85.72 Personal history of non-Hodgkin lymphomas; Z95.5 Presence of coronary angioplasty implant and graft
CPT/HCPCS: 36415

== ENCOUNTER 2025-01-30 00:50 | Day surgery (SDC) | payer OTHER, SELFPAY ==
[2025-01-15 16:02] VITALS: BMI 24.5
--- OUTSIDE RECORDS SUMMARY | 2025-01-30 00:52 | XMS_ITS | Continuity of Care Document ---
Author Organization [facility] Address [address] [place] [address] Phone Care Team Providers Care Project Asst Name Role Phone Arcadiocharleealexis PT, DPT, Trevor Unavailable Unavailable Procedures Procedure Date PT Evaluation Moderate Complexity Therapeutic Activities Therapeutic Activities Neuromuscular Re-Ed Therapeutic Exercise PT Evaluation Moderate Complexity Therapeutic Activities Neuromuscular Re-Ed Therapeutic Activities Neuromuscular Re-Ed Therapeutic Exercise Therapeutic Activities Neuromuscular Re-Ed Therapeutic Exercise Therapeutic Activities Neuromuscular Re-Ed Therapeutic Exercise Therapeutic Activities Neuromuscular Re-Ed Therapeutic Exercise Therapeutic Activities Neuromuscular Re-Ed Therapeutic Exercise Therapeutic Activities Therapeutic Exercise Therapeutic Activities Neuromuscular Re-Ed Therapeutic Exercise PT Evaluation Moderate Complexity Therapeutic Activities Neuromuscular Re-Ed Therapeutic Exercise Advance Directives Directive Yes / No Effective Date File Name No Information Encounters Encounter Description Practice Location Reason(s) For Visit Diagnoses Date Provider Providers Copied on Encounter [facility] [address], [place], [place], [id number], tel:[phone] [place] No Information - 4 Sacha Murray. . [facility], [place], [place], [id number], tel:[phone] [place] No Information 4 Sacha Murray. . Referring Provider: Access Direct. [facility] [address], [place], [place], [id number], [place] tel:[phone] [place] No Information 3 Sacha Murray. . Referring Provider: Access Direct. [facility] [address], [place], [place], [id number], tel:[phone] [place] No Information 3 Sacha Murray. . Referring Provider: Access Direct. [facility] [facility] [address], [place], [place], [id number], [place] tel:[phone] [place] No Information 2 Sacha Murray. . Referring Provider: Norma Cardoso, [address] [place], [address]. tel:[phone] [facility] [address] [facility] [address], [place], [place], [id number], [place] tel:[phone] [place] No Information - 2 Sacha Murray. . Referring Provider: Norma Cardoso, [address] [place], [address]. tel:[phone] [facility] [facility] [address], [place], [place], [id number], tel:[phone] [place] No Information 0 6- 2 Sacha Murray. . Referring Provider: Norma Cardoso, [address] [place], [address]. tel:[phone] [facility] [address], [id number], tel:[phone] [place] No Information 2 Klahn Trevor. . Referring Provider: Norma Cardoso, [address] [place], [address]. tel:[phone] [facility] [address] [place] [address], [id number], [place] tel:[phone] [place] No Information 2 2 Klahn Trevor. . Referring Provider: Norma Cardoso, [address] [place], [address]. tel:[phone] [facility] [address] [place] [address], [id number], tel:[phone] [place] No Information 2 Klahn Trevor. . Referring Provider: Norma Cardoso, [address] [place], [address]. tel:[phone] [facility] [address] [place] [address], [id number], tel:[phone] [place] No Information 2 Klahn Trevor. . Referring Provider: Norma Cardoso [address] [place], [address]. tel:[phone] [facility] [address], [id number], [place] tel:[phone] [place] No Information 0 2 Klahn Trevor. . Referring Provider: Norma Cardoso [address] [place], [address]. tel:[phone] Family History Family Member Type Diagnosis Age At Onset No Information Payers Payer name Insurance type Covered republican ID Nupur kent(s) UMR CI [id number] Social History Type Description Quantity Date Captured Comments Sex Male Smoking Status No Information Chief Complaint And Reason For Visit No Information Reason For Referral Reason For Referral No Information History Of Present Illness Encounter Date Complaint History Of Prese nt Illness No Information Functional Status Date Functional Assessmen t No Information Instructions Date Instruction Additional Infor chapis Giving encouragement to exercise Related to Overweight Giving encouragement to exercise Related to Overweight Giving encouragement to exercise Related to Overweight Giving encouragement to exercise Related to Overweight Assessments Type Assessment Date No Information Patient Care Teams Name Effective Dates (start - stop) Status Members No Information
--- OUTSIDE RECORDS SUMMARY | 2025-01-30 00:52 | XMS_ITS | Encounter Summary ---
Author Organization [facility] Address [address] [place] [address] Phone Care Team Providers Care Transaction Processor Name Role Phone Nargis Hernandez MD Primary Care Provider [phone] Norma Cardoso CYTOLOGY SUPERVISOR Unavailable [phone] Brian Muñoz MD Primary Care Provider [phone] Encounter Details Date Type Department Care Team (Late st Contact Info) Description 10/16/2021 Telephone [facility] [address] 7[address] [place] [address] [place] [address] Shannon Lebron Social History Tobacco Use Types Packs/Day Years Used Date Smoking Tobacco: Never Smokeless Tobacco: Never Alcohol Use Standard Drinks/Week Comments Yes 0 (1 standard drink = 0.6 oz pur e alcohol) couple times a week Sex and Gender Information Value Date Recorded Sex Assigned at Not on file Legal Sex Male 3:19 AM ANESTHESIOLOGY MEDICAL DOCTOR Gender Identity Not on file Sexual Orientation Not on file documented as of this encounter Plan of Treatment Not on file documented as of this encounter Visit Diagnoses Not on filedocumented in this encounter Care Teams Transaction Processor Relationship Specialty Start Date End Date Nargis Hernandez MD PCP - General 10/02/16 08/25/22 Brian Muñoz MD [address] [place] [address] [place] [address] PCP - General Family Medicine 08/26/22 Norma Cardoso NP [facility] [place] [address] Referring Physician Nurse Practitioner 08/15/20 documented as of this encounter
--- OUTSIDE RECORDS SUMMARY | 2025-01-30 00:52 | XMS_ITS | Referral Summary ---
Author Organization [facility] Address [address] [place] [address] Care Team Providers Care Hardware Installer Name Role Phone Walker Norma HEAD OF MAINTENANCE Unavailable [phone] Brian Muñoz MD Primary Care Provider [phone] Encounters Date Type Department Care Team Description 12/07/2024 11:00 AM CDT Lab [facility] - Lab Collection [address] [place] [id number] History of Hodgkin's lymphoma 12/07/2024 11:45 AM CDT Office Visit [facility] [address] [place] [phone] Narcisa Valdez NP History of Hodgkin's lymphoma (Primary Dx) 12/07/2024 10:45 AM CDT Lab [facility] [address] [place] [phone] 12/05/2024 Telephone [facility] [address] [place] [phone] Lesa Haines RMA from Last 3 Months Allergies No known active allergies Medications aspirin 81 mg tablet daily. Active cetirizine (ZyrTEC) 10 mg tablet Take 1 tablet (10 mg total) by mouth daily Active budesonide-for moteroL (SYMBICORT) 160-4.5 mcg/actuation inhaler Inhale 2 puffs 2 (two) times a day 022 Active cyanocobalamin (Vitamin B-12) 1,000 mcg/mL injection INJECT 1 ML SUBCUTANEOUSLY ONCE A WEEK IN THE MORNING 023 Active montelukast (SINGULAIR) 10 mg tablet Take 1 tablet (10 mg total) by mouth daily 024 Active carvediloL (COREG) 12.5 mg tablet Take 1 tablet by mouth twice daily 180 tablet 2 025 Active rosuvastatin (CRESTOR) 10 mg tablet Take 1 tablet by mouth once daily 90 tablet 1 025 Active isosorbide mononitrate ER (IMDUR) 30 mg 24 hr tablet Take 1 tablet by mouth once daily 90 tablet 1 025 Active albuterol HFA (PROVENTIL HFA,VENTOLIN HFA,PROAIR HFA) 90 mcg/actuation inhaler INHALE 2 PUFFS BY MOUTH EVERY 4 HOURS NEEDED FOR SHORTNESS OF BREATH OR WHEEZING 025 Active levothyroxine (SYNTHROID) 137 mcg tablet Take 1 tablet (137 mcg total) by mouth television installer helper before breakfast Active amLODIPine (NORVASC) 5 mg tablet Take 1 tablet by mouth once daily 90 tablet 3 025 Active furosemide (LASIX) 20 mg tablet Take 1 tablet by mouth once daily 90 tablet 3 025 Active furosemide (LASIX) 20 mg tablet Take 1 tablet by mouth once daily 90 tablet 3 024 2024 Discontinued amLODIPine (NORVASC) 5 mg tablet Take 1 tablet by mouth once daily 90 tablet 3 024 2024 Discontinued Active Problems Problem Noted Date Diagnosed Date Nonrheumatic aortic valve stenosis 11/09/2019 Melanocytic nevus of trunk 05/25/2018 History of radiation therapy 05/25/2018 Atherosclerosis of coronary artery 03/30/2017 Radiation-induced coronary artery disease 2016 History of irradiation, presenting hazards to he alth 01/26/2017 Asthma 03/08/2015 Hypothyroidism 01/02/2015 History of Hodgkin's lymphoma 05/20/2011 Resolved Problems Problem Noted Date Diagnosed Date Resolved Date Hodgkin lymphoma 12/13/2018 11/13/2022 Immunizations Immunization Administration Dates Next Due Influenza, Quadrivalent, Spl it, Preservative Free, Intramuscular 05/12/2022,04/19/2019 Social History Tobacco Use Types Packs/Day Years Used Date Smoking Tobacco: Never Smokeless Tobacco: Never Alcohol Use Standard Drinks/Week Comments Yes 0 (1 standard drink = 0.6 oz pur e alcohol) couple times a week Personal Safety Answer Date Recorded Have you ever been in or are you currently in a harmful physical or emotional relationship or is someone making you feel afraid or unsafe? 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 Gender Identity Not on file Sexual Orientation Not on file Last Filed Vital Signs Vital Sign Reading Time Taken Comments Blood Pressure 104/71 12/07/2024 11:07 AM CDT Pulse 74 12/07/2024 11:07 AM CDT Temperature 36.4 C (97.6 F) 12/07/2024 11:07 AM CDT Respiratory Rate 18 12/07/2024 11:07 AM CDT Oxygen Saturation 98% 12/07/2024 11:07 AM CDT Inhaled Oxygen Concentration - - Weight 84.2 kg (185 lb 9.6 oz) 12/07/2024 11:07 AM CDT Height 182 cm (5' 11.65) 12/07/2024 11:07 AM CD T Body Mass Index 25.42 12/07/2024 11:07 AM CDT Plan of Treatment Not on file Procedures Procedure Name Priority Date/Time Associated Diagnosis Comments VITAMIN D 25 HYDROXY Routine 12/07/2024 10:52 AM CDT History of Hodgkin's lymphoma THYROID FUNCTION CASCADE Routine 12/07/2024 10:52 AM CDT History of Hodgkin's lymphoma LIPID PANEL Routine 12/07/2024 10:52 AM CDT History of Hodgkin's lymphoma from Last 3 Months Results * Thyroid Function Bieber (12/07/2024 10:52 AM CDT) TSH 2.22 0.30 - 4.20 mcIUnit/mL Blood 12/07/2024 10:5 2 AM CDT 12/07/2024 10:58 AM CDT Nargis Hernandez MD LAB BLOOD ORDERABLES Final Result Performing Organization Address City/[facility]/ZIP Co de Phone Number YANDEL [facility] Department [place] [address] * Vitamin D 25 hydroxy (12/07/2024 10:52 AM CDT) Vitamin D 25-OH 48 30 - 80 ng/mL Blood 12/07/2024 10:5 2 AM CDT 12/07/2024 5:37 PM CDT Nargis Hernandez MD LAB BLOOD ORDERABLES Final Result Performing Organization Address [facility] de Phone Number YANDEL [facility] Department [place] [address] * (ABNORMAL) Lipid panel (12/07/2024 10:52 AM CDT) Cholesterol 129 30 - 199 mg/dL Comment: Interpretive Data Ages < or = 19 years Acceptable: <170 mg/dL Borderline high: 170-199 mg/dL High: >or= 200 mg/dL Ages > or = 20 years Desirable: <200 mg/dL Borderline high: 200-239 mg/dL High: >or= 240 mg/dL Literature References: 1. Expert Panel on Integrated Guidelines for Cardiovascular Health and Risk Reduction in Children and Adolescents. Pediatrics 2011;128:S213 2. NCEP Expert Panel. Circulation 2004;110:227 Current Interpretive Data was last revised on 2018. Triglycerides 116 <=149 mg/dL [facility] Comment: Interpretive Data Ages < or = 9 years Acceptable: <75 mg/dL Borderline high: 75-99 mg/dL High: >or= 100 mg/dL Ages 10 to 20 years Acceptable: <90 mg/dL Borderline high: 90-129 mg/dL High: >or= 130 mg/dL Ages > or = 20 years Desirable: <150 mg/dL Borderline high: 150-199 mg/dL High: 200-499 mg/dL Very high: >or= 499 mg/dL Literature References: 1. Expert Panel on Integrated Guidelines for Cardiovascular Health and Risk Reduction in Children and Adolescents. Pediatrics 2011;128:S213 2. NCEP Expert Panel. Circulation 2004;110:227 Current Interpretive Data was last revised on 2018. HDL 37(L) >=40 mg/dL YAN[facility] Comment: Interpretive Data Ages < or = 19 years Acceptable: >45 mg/dL Borderline low: 40-45 mg/dL Low: <40 mg/dL Ages > or = 20 years Desirable: >or= 60 mg/dL Low: <40 mg/dL Literature References: 1. Expert Panel on Integrated Guidelines for Cardiovascular Health and Risk Reduction in Children and Adolescents. Pediatrics 2011;128:S213 2. NCEP Expert Panel. Circulation 2004;110:227 Current Interpretive Data was last revised on 2018. LDL, calculated 71 <=129 mg/dL YANDEL [facility] Comment: Interpretive Data Ages < or = 19 years Acceptable: <110 mg/dL Borderline high: 110-129 mg/dL High: >or= 130 mg/dL Ages > or = 20 years Optimal: <100 mg/dL Near optimal: 100-129 mg/dL Borderline high: 130-159 mg/dL High: >160 mg/dL Calculated using the Sudhir LDL-C estimating equation. This equation was implemented on 2024. Prior to this date LDL-C was estimated using the Friedewald equation. Literature References: 1. Expert Panel on Integrated Guidelines for Cardiovascular Health and Risk Reduction in Children and Adolescents. Pediatrics 2011;128:S213 2. NCEP Expert Panel. Circulation 2004;110:227 3. Sudhir Lewis et al. KATLYN Cardiol. 2019November 09;5(5):540-548. doi: 10.1001/jamacardio.2020.0013 Current Interpretive Data was last revised on 2024. Non-HDL Cholesterol 92 mg/dL YANDEL [facility] Comment: Interpretive Data Ages < or = 19 years Acceptable: <120 mg/dL Borderline high: 120-144 mg/dL High: >145 mg/dL Ages > or = 20 years When triglycerides are >200 mg/dL, Non-HDL cholesterol is a secondary target of therapy with treatment goals that are 30 mg/dL greater than the LDL cholesterol target. Literature References: 1. Expert Panel on Integrated Guidelines for Cardiovascular Health and Risk Reduction in Children and Adolescents. Pediatrics 2011;128:S213 2. NCEP Expert Panel. Circulation 2004;110:227 Current Interpretive Data was last revised on 2018. Chol/HDL ratio 3 YANDEL JAMES Blood 12/07/2024 10:5 2 AM CDT 12/07/2024 10:58 AM CDT us Nargis Hernandez MD LAB BLOOD ORDERABLES Final Result YANDEL [facility] Department [place] [address] from Last 3 Months Insurance [facility] HMO/PPO Address: [address] [address] [place] [address] [facility] [employer] [facility] HMO/PPO Address: [address] [address] [place] [address] [facility] HMO/PPO Address: [facility] [address] [place] [address] Care Teams Hardware Installer Relationship Specialty Start Date End Date Brian Muñoz MD [facility] [place] [address] PCP - General Family Medicine 08/26/22 Norma Cardoso NP [facility] [place] [address] Referring Physician Nurse Practitioner 08/15/20
--- OUTSIDE RECORDS SUMMARY | 2025-01-30 00:52 | XMS_ITS | Clinical Summary ---
Author Organization [facility] Address [address] Attn: Epic Prelude ADT SAM FLORENTINIVANIA AGUILAR [address] Care Team Providers Care Balance Truer Name Role Phone Unavailable Primary Care Provider Unavailabl e Social History Tobacco Use Types Packs/Day Years Used Date Smoking Tobacco: Never Assessed Sex and Gender Information Value Date Recorded Sex Assigned at Not on file Legal Sex Male 9:52 PM CDT Gender Identity Not on file Sexual Orientation Not on file Plan of Treatment Health Maintenance Due Date Last Done Comments HPV VACCINES (1 - Male 3-dose series) 1994 DTAP/TDAP/TD VACCINES (1 - Tdap) 1998 HEPATITIS B VACCINES (1 of 3 - 19+ 3-dose series) 03/12 COLORECTAL SCREENING 2024 Colorectal Cancer Screening 2024 FIT-DNA Q 3 years 2024 FIT/FOBT Q 1 year 2024 Flex Sig/CT Colonography Q 5 years 2024 INFLUENZA VACCINE (#1) 2025
--- OUTSIDE RECORDS SUMMARY | 2025-01-30 00:52 | XMS_ITS | Clinical Summary ---
Author Organization [facility] Address [address] [place] [address] Care Team Providers Care Concrete Curer Name Role Phone Almaz Garcia MD Primary Care Provider [phone] Source Comments [email or web address],non-owned Affiliates and Associated Physician Practices is amultiple site organization consisting of ambulatory clinics and hospital sitesin [place], [place], [place] and [place]. This disclosure is being madepursuant to the Care Everywhere program and may not contain all information available regarding this patient. 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 Gender Identity Not on file Sexual Orientation Not on file Plan of Treatment Health Maintenance Due Date Last Done Comments COLOGUARD (AGES 45-75) - COL ON CA SCREENING 1979 COLON MONITORING 1979 COLONOSCOPY - COLON CA SCREENING 1979 CT COLONOGRAPHY - COLON CA SCREENING 1979 Colorectal Cancer Screening 1979 FIT - COLON CA SCREENING 1979 FLEX SIG - COLON CA SCREENING 1979 LIPID TESTING 1979 HIV SCREENING 1994 HEPATITIS C SCREENING 03/16/1997 DTAP/TDAP/TD VACCINES (1 - Tdap) 1998 HEPATITIS B VACCINE (1 of 3 - 19+ 3-dose series) 1998 HPV VACCINE (1 - 3-dose SCDM series) 2006 COVID-19 VACCINE (2023-2 5 season) 2024 DEPRESSION SCREENING 07/12/2024 INFLUENZA VACCINE (#1) 2025 ZOSTER VACCINE (1 of 2) 2029 HIB VACCINE Aged Out No longer eligi ble based on patient's age to complete this topic MENINGOCOCCAL (Group B) VACC INE SHARED DECISION-MAKING Aged Out No longer eligibl e based on patient's age to complete this topic MENINGOCOCCAL GROUPS A/C/Y/W VACCINE Aged Out No longer eligible b ased on patient's age to complete this topic PNEUMOCOCCAL VACCINE Aged Out No long er eligible based on patient's age to complete this topic Insurance [facility] Address: [facility] [address] [place] [address] Care Teams Concrete Curer Relationship Specialty Start Date End Date Almaz Garcia MD [facility] [place] [id number] PCP - General Family Medicine 06/05/16
--- OUTSIDE RECORDS SUMMARY | 2025-01-30 00:52 | XMS_ITS | Clinical Summary ---
Author Organization [facility] Address [address] [place] [address] Care Team Providers Care Freight Traffic Consultant Name Role Phone Norma Cardoso BACON STRINGER Unavailable [phone] Brian Muñoz MD Primary Care Provider [phone] Allergies No known active allergies Medications aspirin [...] 1 tablet (137 mcg total) by mouth education teacher before breakfast Active amLODIPine (NORVASC) 5 mg [...] 2016 History of irradiation, presenting hazards to [facility] 01/26/2017 Asthma 03/08/2015 Hypothyroidism 01/02/2015 History of Hodgkin's lymphoma 05/20/2011 Resolved Problems Problem Noted Date Diagnosed Date Resolved Date Hodgkin lymphoma 12/13/2018 11/13/2022 Encounters Date Type Department Care Team Description 12/07/2024 11:45 AM CDT Office Visit [facility] [address] [place] [phone] Narcisa Valdez NP History of Hodgkin's lymphoma (Primary Dx) 12/07/2024 11:00 AM CDT Lab [facility] - Lab Collection [address] [place] [id number] History of Hodgkin's lymphoma 12/07/2024 10:45 AM CDT Lab [facility] [address] [place] [phone] 12/05/2024 Telephone [facility] [address] [place] [phone] Lesa Haines RMA from Last 3 Months Immunizations Immunization Administration Dates Next Due Influenza, Quadrivalent, Spl it, Preservative Free, Intramuscular 05/12/2022,04/19/2019 Medical History Medical History Date Comments History of Hodgkin's lymphoma Hi story of Hodgkin's lymphoma - (Added by TW Conv) Lymphoma (HCC) Family History Medical History Relation Name Comments No Known Problems Mother Relation Name Status Comments Mother Social History Tobacco Use Types Packs/Day Years [...] on file 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 Gender Identity Not on file Sexual Orientation Not on file Obstetrics History Last Filed Vital Signs Vital Sign Reading [...] 12/07/2024 11:07 AM CDT Plan of Treatment Health Maintenance Due Date Last Done Comments Colon Cancer Screening-Colonoscopy 1979 Depression Screening 1979 Hepatitis C Screening 1979 DTaP/Tdap/Td Vaccine (1 - Tdap) 1990 Hepatitis B Screening 1997 Regular Well Visit/Exam 18-64 1997 Pneumococcal vaccine <65 (1 of 2 - PCV) 1998 Zoster Vaccine (1 of 2) 1998 Covid-19 Vaccine (3 - Pfizer risk series) 11/11/2020 10/14/2020, 09/23/2020 Influenza Vaccine (#1) 2025 2, 04/19/2019 HPV Vaccines Aged Out No longer eligi ble based on patient's age to complete this topic Procedures Procedure Name Priority Date/Time Associated Diagnosis Comments VITAMIN D 25 HYDROXY Routine 12/07/2024 10:52 AM CDT History of Hodgkin's lymphoma THYROID FUNCTION CASCADE Routine 12/07/2024 10:52 AM CDT History of Hodgkin's lymphoma LIPID PANEL Routine 12/07/2024 10:52 AM CDT History of Hodgkin's lymphoma from Last 3 Months Results * Thyroid Function [place] (12/07/2024 10:52 AM CDT) TSH 2.22 0.30 - 4.20 mcIUnit/mL Blood 12/07/2024 10:5 2 AM CDT 12/07/2024 10:58 AM CDT us Nargis Hernandez MD LAB BLOOD ORDERABLES Final Result Performing Organization Address [facility]/ZIP Co de Phone Number [facility] [place] [address] * Vitamin D 25 hydroxy (12/07/2024 10:52 AM CDT) Vitamin D 25-OH 48 30 - 80 ng/mL Blood 12/07/2024 10:5 2 AM CDT 12/07/2024 5:37 PM CDT us Nargis Hernandez MD LAB BLOOD ORDERABLES Final Result [facility] [place] [address] * (ABNORMAL) Lipid panel (12/07/2024 10:52 AM [...] revised on 2018. Triglycerides 116 <=149 mg/dL [facility] Comment: Interpretive Data Ages < or = [...] on 2018. HDL 37(L) >=40 mg/dL [facility] Comment: Interpretive Data Ages < or = [...] 2018. LDL, calculated 71 <=129 mg/dL [facility] Comment: Interpretive Data Ages < or = 19 years Acceptable: <110 mg/dL Borderline high: 110-129 mg/dL High: >or= 130 mg/dL Ages > or = 20 years Optimal: <100 mg/dL Near optimal: 100-129 mg/dL Borderline high: 130-159 mg/dL High: >160 mg/dL Calculated using the Peguero LDL-C estimating equation. This equation was implemented on 2024. Prior to this date LDL-C was estimated using the Friedewald equation. Literature References: 1. Expert Panel on Integrated Guidelines for Cardiovascular Health and Risk Reduction in Children and Adolescents. Pediatrics 2011;128:S213 2. NCEP Expert Panel. Circulation 2004;110:227 3. Sudhir Lewis et al. KATLYN Cardiol. 2020 November 09;5(5):540-548. doi: 10.1001/jamacardio.2020.0013 Current Interpretive Data was last revised on 2024. Non-HDL Cholesterol 92 mg/dL [facility] Comment: Interpretive Data Ages < or = [...] last revised on 2018. Chol/HDL ratio 3 [facility] Blood 12/07/2024 10:5 2 AM CDT 12/07/2024 10:58 AM CDT us Nargis Hernandez MD LAB BLOOD ORDERABLES Final Result [facility] Department [place] [address] from Last 3 Months Insurance [facility]/PPO Address: [address] [address] [place] [address] [facility] CHOICE [employer]US [facility] H[facility]/PPO Address: [facility] [address] [place] [address] [place] [address] [facility] H[facility]/PPO Address: [address] [address] [place] [address] Care Teams Freight Traffic Consultant Relationship Specialty Start Date End Date Brian Muñoz MD [address] [place] [address] [place] [address] PCP - General Family Medicine 08/26/22 Norma Cardoso NP [address] [place] [address] [place] [address] Referring Physician Nurse Practitioner 08/15/20
[2025-01-30 06:20] VITALS: BP 130/89; PULSE 72; RESP 18; TEMP 36.4; O2SAT 100; BMI 24.3
[2025-01-30] MEDS: LACTATED RINGERS 1,000 ML 150 ML IV CONT (06:36)
--- NOTE | 2025-01-30 07:29 | WPDANESEPPF ---
Anes - Initial Pre Proc Eval Procedure: Operation Date: 01/30/25 07:30 Proposed Procedures p Screening Colonoscopy - Rakesh Butts DO Date/Time: 01/30/25 07:29 Surgeon: Rakesh Butts DO Pre Op Diagnosis: Neoplasm screening Patient Data Age: 44 Gender: M Height: 1.83 m Weight: 81.3 kg Last Vital Signs Temp 97.5 F L 01/30/25 06:20 Pulse 72 01/30/25 06:20 Resp 18 01/30/25 06:20 BP 130/89 01/30/25 06:20 Pulse Ox 100 01/30/25 06:20 O2 Del Method Room Air 01/30/25 06:20 Allergies Allergy/AdvReac Type Severity Reaction Status Date / Time No Known Allergies Allergy Unknown Verified 01/30/25 06:18 Home Medications ?Medication ?Instructions ?Recorded ?Confirmed ?Type aspirin 81 mg tablet,delayed 81 mg PO DAILY 11/03/19 01/30/25 History release (Adult Aspirin Regimen) cetirizine 10 mg capsule (Zyrtec) 10 mg PO DAILY 11/03/19 01/30/25 History coQ10 (ubiquinol) 100 mg capsule 100 mg PO BID 11/03/19 01/30/25 History carvedilol 12.5 mg tablet 12.5 mg PO BID 06/11/22 01/30/25 History furosemide 20 mg tablet 20 mg PO DAILY 06/11/22 01/30/25 History isosorbide mononitrate 30 mg 30 mg PO DAILY 06/11/22 01/30/25 History tablet,extended release 24 hr rosuvastatin 10 mg tablet 10 mg PO DAILY 06/11/22 01/30/25 History amlodipine 5 mg tablet 5 mg PO DAILY 08/11/22 01/30/25 History albuterol sulfate 90 mcg/actuation 2 puff inhalation Q4H PRN 07/24/24 01/30/25 Rx aerosol inhaler shortness of breath or wheezing #6.7 grams Synthroid 137 mcg tablet 137 mcg PO DAILY #90 tabs 09/08/24 01/30/25 Rx (levothyroxine) budesonide-formoterol HFA 160 See Rx Instructions .Route 12/22/24 01/30/25 Rx mcg-4.5 mcg/actuation aerosol .COMPLEX #11 grams inhaler cyanocobalamin (vitamin B-12) 1,000 mcg subcut WEEKLY #10 mL 01/22/25 01/30/25 Rx 1,000 mcg/mL injection solution montelukast 10 mg tablet 10 mg PO DAILY #90 tabs 01/22/25 01/30/25 Rx Patient hx anesthesia problems: none Family hx anesthesia problems: none Results Review: All pre-operative results and documents have been reviewed as part of the pre-operative evaluation. [facility] Past Medical History Medical History History of lymphoma High cholesterol History of high blood pressure Hypothyroidism Lymphoma Hypertension Surgical History Surgical History H/O sinus surgery Hx of heart artery stent History of percutaneous coronary intervention Family History Family History Mother Family history non-contributory Other Diabetes mellitus Social History Social History Smoking status: Never smoker Alcohol intake: former Substance use: never Lack of Transportation: No Lack of Food: Never True Current Housing: I Have Housing Concerned About Future Housing: No Difficulty Paying Gas/Electric Bills: No Difficulty Paying for Meds: No Currently Unemployed: No Education: Bachelor's Degree Difficulty w/ Childcare or Family Care: No Living arrangements: with family Gender identity (if verbalized by the patient): Male Sexual Orientation (if Verbalized by the Patient): Straight or Heterosexual Spiritual care concerns: No Anes - Eval Final PreProcedure Day of Procedure 01/30/25 07:29 Patient weight: normal Lungs: normal air movement Airway: Mallampati scale class II Neurological: alert and oriented Last oral intake: >/= 8 hours ASA classification: III Emergent: no Anesthetic plan: proceed Anesthesia type and monitoring: general GIVS and standard monitoring Results Review: All pre-operative results and documents have been reviewed as part of the pre-operative evaluation. Hx of hodgkins lymphoma, s/p radiation w rad induced CAD, s/p PCI to OM and RCA approx 2016 w simultaneous dev of mild . Nml LVEF. Informed Consent: The patient's anesthetic plan and its attendant risks and benefits were discussed with the patient/family/POA. Questions were solicited and answers provided to the satisfaction of the patient/family/POA.
--- NOTE | 2025-01-30 07:30 | PM.IMHP ---
H&P: HPI History of Present Illness Date/Time: 01/30/25 07:30 Chief Complaint: Screening for colorectal cancer Narrative: this is a 44-year-old man who presents for his 1st colonoscopy. He denies any hematochezia melena. He denies family history of cancer. Review of Systems Review of Systems: All systems reviewed & are unremarkable except as noted in HPI and below Constitutional: Constitutional: Denies chills, Denies fever(s), Denies headache(s) and Denies weight loss Eyes: Eyes: Denies change in vision ENT: Denies dizziness, Denies headache(s), Denies neck mass and Denies throat swelling Cardiovascular: Cardiovascular: Denies chest pain, Denies lightheadedness and Denies dyspnea Respiratory: Respiratory: Denies cough, Denies dyspnea and Denies wheezing Gastrointestinal: Gastrointestinal: Denies abdominal pain, Denies change in bowel habits, Denies nausea and Denies vomiting Genitourinary: Genitourinary: Denies hematuria and Denies dysuria Musculoskeletal: Musculoskeletal: Reports as per HPI Integumentary/Breasts: Skin/Breast: Reports as per HPI Neurologic: Denies dizziness and Denies headache(s) Allergic/Immunologic: Allergic/Immunologic: Denies throat swelling and Denies wheezing PMFSH Past Medical History Medical History History of lymphoma High cholesterol History of high blood pressure Hypothyroidism Lymphoma Hypertension Surgical History Surgical History H/O sinus surgery Hx of heart artery stent History of percutaneous coronary intervention Family History Family History Mother Family history non-contributory Other Diabetes mellitus Social History Social History Smoking status: Never smoker Alcohol intake: former Substance use: never Lack of Transportation: No Lack of Food: Never True Current Housing: I Have Housing Concerned About Future Housing: No Difficulty Paying Gas/Electric Bills: No Difficulty Paying for Meds: No Currently Unemployed: No Education: Bachelor's Degree Difficulty w/ Childcare or Family Care: No Living arrangements: with family Gender identity (if verbalized by the patient): Male Sexual Orientation (if Verbalized by the Patient): Straight or Heterosexual Spiritual care concerns: No Meds Home Medications and Allergies Home Medications ?Medication ?Instructions ?Recorded ?Confirmed ?Type aspirin 81 mg tablet,delayed 81 mg PO DAILY 11/03/19 01/30/25 History release (Adult Aspirin Regimen) cetirizine 10 mg capsule (Zyrtec) 10 mg PO DAILY 11/03/19 01/30/25 History coQ10 (ubiquinol) 100 mg capsule 100 mg PO BID 11/03/19 01/30/25 History carvedilol 12.5 mg tablet 12.5 mg PO BID 06/11/22 01/30/25 History furosemide 20 mg tablet 20 mg PO DAILY 06/11/22 01/30/25 History isosorbide mononitrate 30 mg 30 mg PO DAILY 06/11/22 01/30/25 History tablet,extended release 24 hr rosuvastatin 10 mg tablet 10 mg PO DAILY 06/11/22 01/30/25 History amlodipine 5 mg tablet 5 mg PO DAILY 08/11/22 01/30/25 History albuterol sulfate 90 mcg/actuation 2 puff inhalation Q4H PRN 07/24/24 01/30/25 Rx aerosol inhaler shortness of breath or wheezing #6.7 grams Synthroid 137 mcg tablet 137 mcg PO DAILY #90 tabs 09/08/24 01/30/25 Rx (levothyroxine) budesonide-formoterol HFA 160 See Rx Instructions .Route 12/22/24 01/30/25 Rx mcg-4.5 mcg/actuation aerosol .COMPLEX #11 grams inhaler cyanocobalamin (vitamin B-12) 1,000 mcg subcut WEEKLY #10 mL 01/22/25 01/30/25 Rx 1,000 mcg/mL injection solution montelukast 10 mg tablet 10 mg PO DAILY #90 tabs 01/22/25 01/30/25 Rx Allergies Allergy/AdvReac Type Severity Reaction Status Date / Time No Known Allergies Allergy Unknown Verified 01/30/25 06:18 Vital Signs Vital Signs - 24 hr 01/30/25 06:20 Temperature 97.5 F L Pulse Rate 72 Respiratory Rate 18 Blood Pressure 130/89 Pulse Oximetry 100 Oxygen Delivery Room Air Exam Const: General: no acute distress and alert Orientation/consciousness: patient oriented x3 HENMT: Head: normocephalic and atraumatic Ears: hearing grossly normal bilaterally Face/Nose/Sinus: Normal nares present Mouth: Yes Normal oral and palatal mucosa present Eyes: Periorbital: periorbital findings normal Sclera: sclerae normal EOM: EOMs intact bilaterally Neck: Neck: normal visual inspection, no lymphadenopathy and trachea midline Chest: Chest palpation & inspection: normal inspection of the chest Resp: Effort & Inspection: normal respiratory effort Auscultation: clear to auscultation bilaterally Cardio: Jugular venous distension: no JVD Rate: regular rate Rhythm: regular rhythm Heart sounds: S1 normal heart sound present and S2 normal heart sound present Peripheral pulses: Peripheral pulses 2+ throughout GI: Inspection: normal to inspection GI Palp: Yes Soft to palpation, No Tenderness to palpation present (GI), No Guarding due to palpation present (GI) and No Rebound tenderness present Percussion: Yes normal to percussion Auscultation: normal bowel sounds : General: Yes no CVA tenderness Back/Spine/Pelvis: Back: no CVA tenderness Neuro: General: patient oriented x3, no focal motor deficits and CN's II-XI intact bilaterally Cognition (Neuro): normal cognition Speech: normal speech Motor exam (neuro): 5/5 motor strength present throughout Extrem: General: capillary refill normal and no clubbing, cyanosis or edema Assessment and Plan Assessment and plan (1) Screening for colorectal cancer: Code(s): Z12.11 - Encounter for screening for malignant neoplasm of colon; Z12.12 - Encounter for screening for malignant neoplasm of rectum Status: Acute Assessment and Plan: I have recommended colonoscopy. I have discussed the procedure, risks, benefits, and alternatives. Questions were answered. Patient is agreeable to proceed.
--- NOTE | 2025-01-30 07:44 | S_PTH ---
PATIENT: Curtis Novak LOC: [facility] U#:[id number] AGE/SX: 44/M ROOM: RE01/30/[address]: Rakesh Butts DO : 1980 BED: DIS: 01/30/2025 SPEC #: [id number] RECD: 01/30/25 09:10 STATUS: JHON RERuby #: [id number] RENATO: 01/30/25 07:[address]: Rakesh Butts DEPT: [facility] Surgical RECD BY: Brigid Solano ENTERED: 01/30/25 09:10 SP TYPE: Surgical OTHR DR: Soledad Rivas, ABDELRAHMAN Tissues: A - Colon Polypectomy Procedures: Hematoxylin and Eosin Stain Gross and Microscopic Level 4
[2025-01-30 07:45] VITALS: BP 87/49; PULSE 80; RESP 18; O2SAT 97
[2025-01-30 07:55] VITALS: BP 89/52; PULSE 72; RESP 18; O2SAT 100
[2025-01-30 08:05] VITALS: BP 109/51; PULSE 70; RESP 18; O2SAT 100
== END 2025-01-30 08:13 | disposition home or self-care (01) ==
PROVIDERS: PCP Nurse Practitioner Family; Visit Provider Surgery
PROC: 0DJD8ZZ Inspection of Lower Intestinal Tract, Via Natural or Artificial Opening Endoscopic (ICD-10-PCS; CPT 45378; principal; 2025-01-30 07:30)
DX: Z12.11 Encounter for screening for malignant neoplasm of colon (principal); D12.0 Benign neoplasm of cecum; I10 Essential (primary) hypertension; E03.9 Hypothyroidism, unspecified; E78.00 Pure hypercholesterolemia, unspecified; I25.10 Atherosclerotic heart disease of native coronary artery without angina pectoris; Z79.82 Long term (current) use of aspirin; Z79.51 Long term (current) use of inhaled steroids; Z98.890 Other specified postprocedural states; Z95.5 Presence of coronary angioplasty implant and graft; Z85.72 Personal history of non-Hodgkin lymphomas
CPT/HCPCS: 45380; 88305; J2704; J7120